=== PATIENT | female | born 1985 | race Two or more races ===

== ENCOUNTER 2024-08-31 22:16 | Emergency (ER) | payer OTHER ==
[~2024-08-31] VITALS: Ht 162.6 cm; Wt 70.4 kg
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
[2024-08-31] MEDS: HYDROcodone-ACET 5/325MG TAB PO ONE (23:00)
[2024-08-31] MEDS: IBUPROFEN 600 MG TAB PO ONE (23:00)
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
[2024-09-01 00:17] VITALS: BP 119/78; PULSE 87; RESP 17; TEMP 98; O2SAT 98
[2024-09-01] MEDS ORDERED: TIZA-142 PO (00:38)
[2024-09-01] MEDS ORDERED: IBUP-1456 PO (00:38)
== END 2024-09-01 00:49 | disposition home or self-care (01) ==
LOC: ER 22:16
DX: S29.012A Strain of muscle and tendon of back wall of thorax, initial encounter (principal); S33.5XXA Sprain of ligaments of lumbar spine, initial encounter; V89.2XXA Person injured in unspecified motor-vehicle accident, traffic, initial encounter; Y93.89 Activity, other specified; Y92.488 Other paved roadways as the place of occurrence of the external cause; Y99.8 Other external cause status
CPT/HCPCS: 72070; 72100

== ENCOUNTER 2024-09-03 16:14 | Emergency (ER) | payer OTHER ==
[~2024-09-03 16:14] MED LIST: IBUP-1456 PO; TIZA-142 PO
[2024-09-03] MEDS: HYDROcodone-ACET 7.5/325MG TAB PO ONE (17:00)
[2024-09-03] MEDS: KETOROLAC TROMETH 30 MG/ML 1ML VIAL IM ONE (17:00)
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
[2024-09-03] MEDS ORDERED: METH-1181 PO (17:22)
[2024-09-03 17:35] VITALS: BP 111/75; PULSE 75; RESP 18; O2SAT 98
== END 2024-09-03 18:00 | disposition home or self-care (01) ==
LOC: ER 16:14
DX: S30.1XXA Contusion of abdominal wall, initial encounter (principal); M79.18 Myalgia, other site; Z79.899 Other long term (current) drug therapy; V89.2XXA Person injured in unspecified motor-vehicle accident, traffic, initial encounter; Y93.89 Activity, other specified; Y92.488 Other paved roadways as the place of occurrence of the external cause; Y99.8 Other external cause status
CPT/HCPCS: 96372; 99283; J1885